=== PATIENT | female | born 1995 | race Caucasian/White ===

== ENCOUNTER 2019-06-18 08:00 | Inpatient (IN) ==
[2019-06-18] MEDS ORDERED: Naloxone 0.4 MG/ML INJ IVP PRN (08:46)
[2019-06-18] MEDS ORDERED: Metoclopramide 10 MG/2 ML VIAL IVP PRN (08:46)
[2019-06-18] MEDS ORDERED: *HR* Nalbuphine 10 MG/ML AMPUL IVP PRN (08:46)
[2019-06-18] MEDS ORDERED: Lidocaine 1% 20 ML MDV ID PRN (08:46)
[2019-06-18] MEDS ORDERED: Ondansetron 4 MG/2 ML VIAL IVP PRN (08:46)
[2019-06-18] MEDS ORDERED: Famotidine 20 MG/2 ML VIAL IVP PRN (08:46)
[2019-06-18] MEDS ORDERED: Oxytocin 20 units/ LR 1000 mL 20 UNIT/1,000 ML BAG IVC SCH (09:30)
[2019-06-18] MEDS: Ringers Solution, Lactated 1,000 ML IVC SCH ×3 (09:40→20:21)
[2019-06-18 09:56] LABS: Basophils % 0.4 %; Eosinophils # 0.1 K/mcL (0.0-0.6); Eosinophils % 1.3 %; Hematocrit 38.7 % (35.3-44.9); Hemoglobin 13.3 g/dL (11.5-15.4); Immature Granulocytes % 0.9 % (0-4); Lymphocytes % 18.6 %; Mean Corpuscular HGB Conc 34.4 g/dL (31.6-35.5); Mean Corpuscular Hemoglobin 29.9 pg (28.0-33.3); Mean Platelet Volume 11.7 fL (9.4-12.4); Monocytes # 1.1 K/mcL (0.0-1.3); Monocytes % 9.9 %; Neutrophils # 7.6 K/mcL (1.6-8.9); Platelet Count 187 K/mcL (140-400); Red Blood Count 4.45 M/mcL (3.82-4.97); Red Cell Distribution Width 13.4 % (11.5-14.5); Segmented Neutrophils % 68.9 %; White Blood Count 10.9 K/mcL (4.3-11.1)
[2019-06-18] MEDS ORDERED: EPHEDrine 50 MG/ML VIAL IVP PRN (09:56)
[2019-06-18] MEDS ORDERED: Epidural Premix (fent/bupiv) 110 ML EP SCH (10:00)
[2019-06-18 10:30] LABS: Amphetamine Screen,Urine Negative ng/mL (Cutoff=1000); Barbiturate Screen,Urine Negative ng/mL (Cutoff=200); Benzodiazepines Screen,Urine Negative ng/mL (Cutoff=200); Cannabinoid Screen,Urine Positive ng/mL (Cutoff = 50); Cocaine Screen,Urine Negative ng/mL (Cutoff= 300); Opiate Screen,Urine Negative ng/mL (Cutoff=300); Phencyclidine Screen,Urine Negative ng/mL (Cutoff=25)
[2019-06-18] MEDS ORDERED: *HR* FentaNYL (PF) 100 MCG/2 ML VIAL ONE (19:57)
[2019-06-18] MEDS ORDERED: Ropivacaine/PF 0.2% 20 ML VIAL ONE (19:57)
[2019-06-19] MEDS ORDERED: Rho Immune Globulin 1,500 UNIT SYRINGE IM PRN (02:52)
[2019-06-19] MEDS ORDERED: Acetaminophen 325 MG TABLET PO PRN (02:52)
[2019-06-19] MEDS ORDERED: Measles/Mumps/Rubella Vacc 0.5 ML VIAL SQ PRN (02:52)
[2019-06-19] MEDS ORDERED: Oxytocin 20 units/ LR 1000 mL 20 UNIT/1,000 ML BAG IVC ONE (02:52)
[2019-06-19] MEDS ORDERED: Ibuprofen 600 MG TABLET PO PRN (02:52)
[2019-06-19] MEDS ORDERED: Oxytocin 20 units/ LR 1000 mL 20 UNIT/1,000 ML BAG IVC SCH (02:52)
[2019-06-19 06:53] LABS: Basophils # 0.1 K/mcL (0.0-0.2); Basophils % 0.3 %; Eosinophils % 0.2 %; Hematocrit 37.7 % (35.3-44.9); Hemoglobin 12.8 g/dL (11.5-15.4); Immature Granulocytes % 0.7 % (0-4); Lymphocytes # 2.2 K/mcL (0.6-4.6); Mean Corpuscular Hemoglobin 30.2 pg (28.0-33.3); Mean Corpuscular Volume 88.9 fL (83.0-100.0); Monocytes # 2.3 K/mcL (0.0-1.3); Monocytes % 10.5 %; Neutrophils # 17.5 K/mcL (1.6-8.9); Platelet Count 184 K/mcL (140-400); Red Blood Count 4.24 M/mcL (3.82-4.97); Red Cell Distribution Width 13.5 % (11.5-14.5); Segmented Neutrophils % 78.3 %
[2019-06-19 06:54] LABS: White Blood Count 22.3 K/mcL (4.3-11.1)
[2019-06-19] MEDS: Prenatal Vit/FA 1 EACH TABLET PO SCH (08:27)
[2019-06-19] MEDS ORDERED: Lanolin 7 G OINT...G. TP PRN (15:37)
[2019-06-20 07:45] VITALS: BP 121/72
[2019-06-20] MEDS: Prenatal Vit/FA 1 EACH TABLET PO SCH (08:43)
== END 2019-06-20 12:11 | disposition home or self-care (01) | DRG 807 ==
LOC: 1NENULAB 08:19 → 1NENUOBS 06-19 02:25
PROVIDERS: ADMIT Obstetrics & Gynecology; ATTEND Obstetrics & Gynecology

== ENCOUNTER 2020-12-14 08:13 | Inpatient (IN) ==
[2020-12-14] MEDS ORDERED: Lidocaine 1% 20 ML MDV INFILT PRN (08:28)
[2020-12-14] MEDS ORDERED: Famotidine 20 MG/2 ML VIAL IVP PRN (08:28)
[2020-12-14] MEDS ORDERED: *HR* Nalbuphine 10 MG/ML AMPUL IV PRN (08:28)
[2020-12-14] MEDS ORDERED: Naloxone 0.4 MG/ML INJ IVP PRN (08:28)
[2020-12-14] MEDS ORDERED: Azithromycin 500 MG in 0.9 % Sodium Chloride 250 ML IVPB PRN (08:28)
[2020-12-14] MEDS ORDERED: miSOPROStoL 25 MCG TABLET PO PRN (08:28)
[2020-12-14] MEDS ORDERED: Ondansetron 4 MG/2 ML VIAL IVP PRN (08:28)
[2020-12-14] MEDS ORDERED: Metoclopramide 10 MG/2 ML VIAL IVP PRN (08:28)
[2020-12-14] MEDS ORDERED: Oxytocin 20 units/ LR 1000 mL 20 UNIT/1,000 ML BAG IVC SCH ×2 (08:30→23:15)
[2020-12-14 10:02] LABS: Basophils % 0.5 %; Eosinophils # 0.1 K/mcL (0.0-0.6); Eosinophils % 1.1 %; Hematocrit 35.9 % (35.3-44.9); Hemoglobin 11.8 g/dL (11.5-15.4); Immature Granulocytes % 1.1 % (0-4); Lymphocytes # 1.4 K/mcL (0.6-4.6); Lymphocytes % 18.9 %; Mean Corpuscular HGB Conc 32.9 g/dL (31.6-35.5); Mean Corpuscular Hemoglobin 28.1 pg (28.0-33.3); Mean Corpuscular Volume 85.5 fL (83.0-100.0); Mean Platelet Volume 12.6 fL (9.4-12.4); Monocytes # 0.9 K/mcL (0.0-1.3); Monocytes % 11.5 %; Platelet Count 149 K/mcL (140-400); Red Cell Distribution Width 12.7 % (11.5-14.5); Segmented Neutrophils % 66.9 %; White Blood Count 7.4 K/mcL (4.3-11.1)
[2020-12-14] MEDS: Ringers Solution, Lactated 1,000 ML IVC SCH ×3 (10:03→21:09)
[2020-12-14 10:11] LABS: Amphetamine Screen,Urine Negative ng/mL (Cutoff=1000); Barbiturate Screen,Urine Negative ng/mL (Cutoff=200); Benzodiazepines Screen,Urine Negative ng/mL (Cutoff=200); Cannabinoid Screen,Urine Negative ng/mL (Cutoff = 50); Cocaine Screen,Urine Negative ng/mL (Cutoff= 300); Opiate Screen,Urine Negative ng/mL (Cutoff=300); Phencyclidine Screen,Urine Negative ng/mL (Cutoff=25)
[2020-12-14] MEDS ORDERED: EPHEDrine 50 MG/ML VIAL IVP PRN (20:33)
[2020-12-14] MEDS ORDERED: Ropivacaine/PF 0.2% 20 ML VIAL ONE (20:38)
[2020-12-14] MEDS ORDERED: Epidural Premix (fent/bupiv) 110 ML EP SCH (20:45)
[2020-12-14] MEDS ORDERED: Rho Immune Globulin 1,500 UNIT SYRINGE IM PRN (23:15)
[2020-12-14] MEDS ORDERED: Measles/Mumps/Rubella Vacc 0.5 ML VIAL SQ PRN (23:15)
[2020-12-14] MEDS ORDERED: Oxytocin 20 units/ LR 1000 mL 20 UNIT/1,000 ML BAG IVC ONE (23:15)
[2020-12-14] MEDS ORDERED: Acetaminophen 325 MG TABLET PO PRN (23:15)
[2020-12-15 06:28] LABS: Basophils % 0.2 %; Eosinophils % 0.2 %; Hematocrit 33.2 % (35.3-44.9); Hemoglobin 10.7 g/dL (11.5-15.4); Immature Granulocytes % 0.5 % (0-4); Lymphocytes # 1.5 K/mcL (0.6-4.6); Lymphocytes % 8.7 %; Mean Corpuscular HGB Conc 32.2 g/dL (31.6-35.5); Mean Corpuscular Hemoglobin 27.5 pg (28.0-33.3); Mean Corpuscular Volume 85.3 fL (83.0-100.0); Mean Platelet Volume 12.3 fL (9.4-12.4); Monocytes % 11.3 %; Neutrophils # 13.8 K/mcL (1.6-8.9); Platelet Count 146 K/mcL (140-400); Red Blood Count 3.89 M/mcL (3.82-4.97); Red Cell Distribution Width 12.9 % (11.5-14.5); Segmented Neutrophils % 79.1 %; White Blood Count 17.5 K/mcL (4.3-11.1)
[2020-12-15] MEDS: Ibuprofen 600 MG TABLET PO PRN ×2 (07:30→16:14)
[2020-12-15 07:46] VITALS: O2SAT 97
[2020-12-15] MEDS ORDERED: Prenatal Vit/FA 1 EACH TABLET PO SCH (09:00)
[2020-12-15 15:57] VITALS: BP 118/71; PULSE 77; TEMP 97.8
== END 2020-12-15 22:40 | disposition home or self-care (01) | DRG 807 ==
LOC: 1NENULAB 08:13 → 1NENUOBS 12-15 00:48
PROVIDERS: ADMIT Obstetrics & Gynecology; ATTEND Obstetrics & Gynecology

== ENCOUNTER 2022-03-24 10:27 | Observation (INO) ==
[2022-03-24 11:17] LABS: Bilirubin,Urine Negative (Negative); Blood,Urine Negative (Negative); Clarity,Urine Clear (Clear); Color,Urine Colorless (Yellow); Glucose,Urine (UA) Normal (Normal); Ketones,Urine Negative (Negative); Leukocyte Esterase,Urine Negative (Negative); Nitrite,Urine Negative (Negative); PH,Urine 6.5 pH Units (5.0-8.0); Protein,Urine Negative (Neg-Trace); Specific Gravity,Urine 1.008 (1.010-1.025); Urobilinogen,Urine Normal (Normal)
[2022-03-24 11:32] LABS: Amphetamine Screen,Urine Negative ng/mL (Cutoff=1000); Barbiturate Screen,Urine Negative ng/mL (Cutoff=200); Benzodiazepines Screen,Urine Negative ng/mL (Cutoff=200); Cannabinoid Screen,Urine Positive ng/mL (Cutoff = 50); Cocaine Screen,Urine Negative ng/mL (Cutoff= 300); Opiate Screen,Urine Negative ng/mL (Cutoff=300); Phencyclidine Screen,Urine Negative ng/mL (Cutoff=25)
[2022-03-24 11:50] LABS: Basophils # 0.1 K/mcL (0.0-0.2); Basophils % 1.1 %; Eosinophils # 0.1 K/mcL (0.0-0.6); Eosinophils % 1.7 %; Hematocrit 49.7 % (35.3-44.9); Hemoglobin 16.3 g/dL (11.5-15.4); INR 0.9; Immature Granulocytes % 0.4 % (0-4); Lymphocytes # 1.6 K/mcL (0.6-4.6); Lymphocytes % 29.9 %; Mean Corpuscular HGB Conc 32.8 g/dL (31.6-35.5); Mean Corpuscular Hemoglobin 31.3 pg (28.0-33.3); Mean Corpuscular Volume 95.6 fL (83.0-100.0); Mean Platelet Volume 10.6 fL (9.4-12.4); Monocytes # 0.5 K/mcL (0.0-1.3); Monocytes % 8.7 %; Neutrophils # 3.1 K/mcL (1.6-8.9); Platelet Count 202 K/mcL (140-400); Prothrombin Time 10.5 Seconds (9.4-12.1); Segmented Neutrophils % 58.2 %; White Blood Count 5.3 K/mcL (4.3-11.1)
[2022-03-24 12:03] LABS: Acetaminophen < 10 mcg/mL (10-20); Alanine Aminotransferase 36 Units/L (7-52); Albumin 4.8 g/dL (3.5-5.7); Albumin/Globulin Ratio 1.5 (1.1-2.2); Alkaline Phosphatase 73 Units/L (34-104); Aspartate Amino Transferase 57 Units/L (13-39); BUN/Creatinine Ratio 18 (6-26); Bilirubin,Direct 0.1 mg/dL (0.0-0.2); Bilirubin,Indirect 0.2 mg/dL (0.0-1.0); Bilirubin,Total 0.3 mg/dL (0.3-1.0); Blood Urea Nitrogen 10 mg/dL (6-20); Calcium 9.6 mg/dL (8.6-10.3); Carbon Dioxide 28 mEq/L (23-29); Chloride 106 mEq/L (98-107); Ethanol 234 mg/dL (Less than 10); Globulin 3.1 g/dL (2.4-3.5); Glucose 88 mg/dL (70-105); Osmolality,Calculated 294 (280-300); Potassium 3.9 mEq/L (3.5-5.1); Salicylate < 2.5 mg/dL (15.0-30.0); Sodium 143 mEq/L (136-145); Total Protein 7.9 g/dL (6.4-8.9)
[2022-03-24] MEDS ORDERED: Nicotine 7 MG PATCH.TD24 TD ONE (13:39)
[2022-03-24] MEDS ORDERED: Naloxone 0.4 MG/ML INJ IVP PRN (13:42)
[2022-03-24] MEDS ORDERED: *HR* LORazepam 1 MG TABLET PO PRN ×3 (13:43)
[2022-03-24] MEDS ORDERED: *HR* Metoprolol 5 MG/5 ML VIAL IVP PRN (13:44)
[2022-03-24] MEDS: 0.9 % Sodium Chloride 1,000 ML IVC SCH (17:08)
[2022-03-24] MEDS: Nicotine 14 MG PATCH.TD24 TD SCH (17:11)
[2022-03-24] MEDS ORDERED: Thiamine (B-1) 100 MG, Folic Acid 1 MG, MVI, adult with vitamin K 10 ML in 0.9 % Sodi... IVPB SCH (18:00)
[2022-03-25] MEDS: 0.9 % Sodium Chloride 1,000 ML IVC SCH ×2 (06:27→12:51)
[2022-03-25] MEDS: Nicotine 14 MG PATCH.TD24 TD SCH (07:56)
[2022-03-25] MEDS ORDERED: Neosporin OINT 15 GM TUBE TP SCH (09:00)
[2022-03-25 10:56] VITALS: BP 130/80; PULSE 84; TEMP 98.2; O2SAT 98
[2022-03-25 13:19] LABS: Influenza A PCR Negative (Negative); Influenza B PCR Negative (Negative); Resp. Syncytial Virus PCR Positive (Negative)
[2022-03-25 13:20] LABS: SARS-CoV-2 by PCR (In House) Negative (Negative)
== END 2022-03-25 15:11 ==
LOC: EMEROOARM 10:27 → 3BNU 10:27 → SUATTDRO 14:15 → 3BNU 15:32
PROVIDERS: ADMIT Internal Medicine; ATTEND Internal Medicine